=== PATIENT | male | born 1955 | race Caucasian/White ===

== ENCOUNTER 2021-11-24 11:41 | Outpatient (CLI) | payer MEDICARE, SELFPAY ==
[2021-11-24 14:57] LABS: Sodium* 141 mmol/L (135-149)
[2021-11-24 14:58] LABS: Albumin* 4.6 g/dL (3.3-5.0); Potassium* 4.8 mmol/L (3.6-5.1)
[2021-11-24 15:00] LABS: Cholesterol* 245 mg/dL (90-199)
[2021-11-24 15:01] LABS: Alanine Aminotransferase* 31 U/L (4-50); Alkaline Phosphatase* 51 U/L (40-150); Aspartate Amino Transferase* 33 U/L (12-35); Bilirubin Total* 0.4 mg/dL (0.1-1.5); Blood Urea Nitrogen* 17 mg/dL (7-30); Calcium* 9.3 mg/dL (8.4-10.6); Carbon Dioxide* 27 mmol/L (20-32); Creatinine* 1.1 mg/dL (0.5-1.5); Estimated Glomerular Filt Rate 75 ml/min; Glucose* 98 mg/dL (60-115); Total Protein* 7.4 g/dL (6.0-8.3); Triglycerides* 179 mg/dL (40-149)
[2021-11-24 15:02] LABS: HDL Cholesterol* 46 mg/dL (>=40); LDL Cholesterol Calculated 163 mg/dL (<100)
[2021-11-24 15:43] LABS: Chloride* 105 mmol/L (96-114)
== END 2021-11-24 11:42 | disposition home or self-care (01) ==
LOC: NFLDREF 11:41
PROVIDERS: PCP Family Medicine; Visit Provider Family Medicine
DX: R42 Dizziness and giddiness (principal); E78.5 Hyperlipidemia, unspecified; R80.9 Proteinuria, unspecified; D72.829 Elevated white blood cell count, unspecified
CPT/HCPCS: 80053; 80061

== ENCOUNTER 2023-07-15 07:40 | Outpatient (CLI) | payer MEDICARE, SELFPAY ==
--- OUTSIDE RECORDS SUMMARY | 2023-07-16 06:00 | XMS_ITS | Continuity of Care Document ---
Author Name Unknown Organization [facility] Address [address] [place] [address] Phone Care Team Providers Care Skating Carhop Name Role Phone Jus Ross MD Unavailable Unavailable Procedures Procedure Date Office/Outpatient Visit,[facility] [place] 2013 X-Ray Exam Lwr Spine, Min 4 Views Advance Directives Directive Yes / No Effective Date File Name No Information Encounters Encounter Description Practice Location Reason(s) For Visit Diagnoses Date Provider Providers Copied on Encounter [facility], [address], [place], [place], [id number], [place] tel:[phone] [facility] No Information 5 Cody Luu. [facility], [address] [place] [address], [address], [place], [id number] , [place]. tel:[phone] Office/Outpat ient Visit,[facility], [address] [place], [place] [address], [place], [address], [place] tel:[phone] [facility] 4 Cody Luu. [facility], [address] [place] [address], [address], [place], [place], [id number] , [place]. tel:[phone] Referring Provider: Blaise Shepard, [facility] And [address], [address]. tel:[phone] Family History Family Member Type Diagnosis Age At Onset No Information Payers Payer name Insurance type Covered democrat ID Authoriza tion(s) No Information Social History Type Description Quantity Date Captured Comments Sex Male Smoking Status No Information Chief Complaint And Reason For Visit No Information Reason For Referral Reason For Referral No Information History Of Present Illness Encounter Date Complaint History Of Prese nt Illness No Information Functional Status Date Functional Assessmen t No Information Instructions Date Instruction Additional Infor mation No Information Assessments Type Assessment Date No Information Patient Care Teams Name Effective Dates (start - stop) Status Members No Information
--- OUTSIDE RECORDS SUMMARY | 2023-07-16 06:01 | XMS_ITS | Clinical Summary ---
Author Name Unknown Organization [facility] Address [address] [place] [address] Care Team Providers Care Site Leasing Agent Name Role Phone No Ref-Primary, Physician Primary Care Provider Dave Douglas OD Unavailable Marino Anthony MD Unavailable [phone] Allergies Active Allergy Reactions Criticality Noted Date Comments Hydrocodone 03/23/2018 Other reaction(s): Constipation Medications Medication Sig Dispensed Refills Start Date End Date Status simvastatin (ZOCOR) 20 MG tablet Take 20 mg by mouth 01/31/2018 Active meclizine (ANTIVERT) 25 MG tabletIndications:Di zziness of unknown cause Take 1 tablet (25 mg) by mouth 3 times daily as needed for dizziness 12 tablet 10/04/2021 Active Active Problems Problem Noted Date Diagnosed Date Dizziness 10/04/2021 Nausea and vomiting 10/04/2021 Ringing in the ear, bilateral 10/04/2021 Dizziness of unknown cause 10/04/2021 Social History Tobacco Use Types Packs/Day Years Used Date Smoking Tobacco: Former Cigarettes Smokeless Tobacco: Never Alcohol Use Standard Drinks/Week Comments Yes 0 (1 standard drink = 0.6 oz pur e alcohol) Adolescent Education Answer Date Record ed Getting School Help Needed Not on file 01/10 Sex and Gender Information Value Date Recorded Sex Assigned at Male 07/09/2018 8:45 AM CDT Gender Identity Not on file Sexual Orientation Choose not to disclose 2018 8:45 AM CDT Last Filed Vital Signs Vital Sign Reading Time Taken Comments Blood Pressure 144/77 10/04/2021 1:38 PM CDT Pulse 71 10/04/2021 9:13 AM CDT Temperature 36.8 ??C (98.3 ??F) 10/04/2021 1:38 PM CD T Respiratory Rate 18 10/04/2021 1:38 PM CDT Oxygen Saturation 93% 10/04/2021 1:38 PM CDT Inhaled Oxygen Concentration - - Weight 110.5 kg (243 lb 9.7 oz) 10/04/2021 2:40 AM CDT Height 172.7 cm (5' 8) 10/04/2021 2:36 AM CDT Body Mass Index 37.04 10/04/2021 2:36 AM CDT Plan of Treatment Health Maintenance Due Date Last Done Comments ADVANCE CARE PLANNING 1955 ANNUAL REVIEW OF HM ORDERS 1955 CT COLONOGRAPHY 1955 FIT 1955 FLEX SIG 1955 LIPID 1955 sDNA (Cologuard) 1955 COLONOSCOPY 02/12/1966 COLORECTAL CANCER SCREENING 02/12/1966 HEPATITIS C SCREENING 02/12/1974 LUNG CANCER SCREENING 02/12/2006 RSV VACCINE ( & 60+) (1 - 1-dose 60+ series) 2016 FALL RISK ASSESSMENT 02/12/2021 MEDICARE ANNUAL WELLNESS VISIT 02/12/2021 Pneumococcal Vaccine: 65+ Years (1 of 1 - PCV) 02/12/2021 COVID-19 Vaccine (4 - 2022- season) 2022 03/26/2021, 09/24/2020, 09/03/2020 INFLUENZA VACCINE (#1) 2022 , 02/01/2020, 01/30/2019, Additional history exists PHQ-2 (once per calendar year) 2023 GLUCOSE 10/03/2024 10/03/2021 DTAP/TDAP/TD IMMUNIZATION (3 - Td or Tdap) 03/23/2026 03/23/2016, 09/17/2006 ZOSTER IMMUNIZATION Completed 02/25/2019, 12/10/2018, 03/21/2015 HPV IMMUNIZATION Aged Out No longer e ligible based on patient's age to complete this topic IPV IMMUNIZATION Aged Out No longer e ligible based on patient's age to complete this topic MENINGITIS IMMUNIZATION Aged Out No l onger eligible based on patient's age to complete this topic RSV MONOCLONAL ANTIBODY Aged Out No l onger eligible based on patient's age to complete this topic Procedures Procedure Name Priority Date/Time Associated Diagnosis Comments COMPREHENSIVE METABOLIC PANEL STAT 10/03/2021 8:55 PM CDT from Last 3 Months or Most Recently Relevant to Health Maintenance Results * (ABNORMAL) Comprehensive metabolic panel (10/03/2021 8:55 PM CDT) Sodium 138 133 - 144 mmol/L 10/03/2021 9:20 PM CDT [facility] Potassium 3.7 3.4 - 5.3 mmol/L 10/03/2021 9:20 PM CDT [facility] Chloride 106 94 - 109 mmol/L 10/03/2021 9:20 PM CDT [facility] Carbon Dioxide (CO2) 26 20 - 32 mmol/L 10/03/2021 9:20 PM CDT [facility] Anion Gap 6 3 - 14 mmol/L 10/03/2021 9:20 PM CDT [facility] Urea Nitrogen 27 7 - 30 mg/dL 10/03/2021 9:20 PM CDT [facility] Creatinine 1.31(H) 0.66 - 1.25 mg/dL 10/03/2021 9:20 PM CDT [facility] Calcium 9.0 8.5 - 10.1 mg/dL 10/03/2021 9:20 PM CDT [facility] Glucose 150(H) 70 - 99 mg/dL 10/03/2021 9:20 PM CDT [facility] Alkaline Phosphatase 43 40 - 150 U/L 10/03/2021 9:20 PM CDT [facility] AST 26 0 - 45 U/L 10/03/2021 9:20 PM CDT [facility] ALT 44 0 - 70 U/L 10/03/2021 9:20 PM CDT [facility] Protein Total 8.3 6.8 - 8.8 g/dL 10/03/2021 9:20 PM CDT [facility] Albumin 4.4 3.4 - 5.0 g/dL 10/03/2021 9:20 PM CDT [facility] Bilirubin Total 0.4 0.2 - 1.3 mg/dL 10/03/2021 9:20 PM CDT [facility] GFR Estimate 60(L) >60 mL/min/1.7 3m2 10/03/2021 9:20 PM CDT [facility] Comment:Effective March 062020 eGFRcr in adults is calculated using the 2020 CKD-EPI creatinine equation which includes age and gender (Millie et al., NEJM, DOI: 10.1056/MBBMak1578052) Blood STRUCTURE OF LEFT UPPER LIMB / Unknown Venipuncture / Unknown 10/03/2021 8:55 PM CDT 10/03/2021 8:58 PM CDT Hossein Richards MD LAB - BLOOD ORDERABL ES [facility] [address] [place] [address], [facility] [phone] from Last 3 Months or Most Recently Relevant to Health Maintenance Advance Directives For more information, please contact: [phone] * Full Code (Latest Code Status on File) Date Activated Date Inactivated Comments 10/04/2021 2:35 AM 10/04/2021 6:21 PM All basic and advanced life-sustaining interventions are performed as appropriate Question Answer Comments Code status determined by: Discussion with jaycob nt/ legal decision maker Care Teams Site Leasing Agent Relationship Specialty Start Date End Date No Ref-Primary, Physician PCP - General 06/15/18 Dave Douglas OD [facility] [place] [address] Referring Physician 06/15/18 Marino Anthony MD [facility] [address] [place] [address] Ophthalmology 06/15/18
--- OUTSIDE RECORDS SUMMARY | 2023-07-16 06:01 | XMS_ITS | Referral Summary ---
Author Name Unknown Organization [facility] Address [address] [place] [address] Care Team Providers Care Surface Room Shop Optician Name Role Phone No Ref-Primary, Physician Primary Care Provider Dave Douglas OD Unavailable Marino Anthony MD Unavailable [phone] Allergies Active Allergy Reactions Criticality Noted [...] 10/04/2021 2:36 AM CDT Plan of Treatment Not on file Procedures Procedure Name Priority Date/Time Associated Diagnosis Comments COMPREHENSIVE METABOLIC PANEL STAT 10/03/2021 8:55 PM CDT from Last 3 Months or Most Recently Relevant to Health Maintenance Results * (ABNORMAL) Comprehensive metabolic panel (10/03/2021 8:55 PM CDT) Sodium 138 133 - 144 mmol/L 10/03/2021 9:20 PM CDT [facility] Potassium 3.7 3.4 - 5.3 mmol/L 10/03/2021 9:20 PM CDT [facility] Chloride 106 94 - 109 mmol/L 10/03/2021 9:20 PM CDT [facility] Carbon Dioxide (CO2) 26 20 - 32 mmol/L 10/03/2021 9:20 PM CDT [facility] Anion Gap 6 3 - 14 mmol/L 10/03/2021 9:20 PM CDT [facility] Urea Nitrogen 27 7 - 30 mg/dL 10/03/2021 9:20 PM CDT [facility] Creatinine 1.31(H) 0.66 - 1.25 mg/dL 10/03/2021 9:20 PM CDT [facility] Calcium 9.0 8.5 - 10.1 mg/dL 10/03/2021 9:20 PM CDT [facility] Glucose 150(H) 70 - 99 mg/dL 10/03/2021 9:20 PM CDT [facility] Alkaline Phosphatase 43 40 - 150 U/L 10/03/2021 9:20 PM CDT [facility] AST 26 0 - 45 U/L 10/03/2021 9:20 PM CDT [facility] ALT 44 0 - 70 U/L 10/03/2021 9:20 PM CDT [facility] Protein Total 8.3 6.8 - 8.8 g/dL 10/03/2021 9:20 PM CDT [facility] Albumin 4.4 3.4 - 5.0 g/dL 10/03/2021 9:20 PM CDT [facility] Bilirubin Total 0.4 0.2 - 1.3 mg/dL 10/03/2021 9:20 PM CDT [facility] GFR Estimate 60(L) >60 mL/min/1.7 3m2 10/03/2021 9:20 PM CDT [facility] Comment:Effective March 062020 eGFRcr in adults is calculated using the 2020 CKD-EPI creatinine equation which includes age and gender (Results Technician et al., NEJM, DOI: 10.1056/ZRWVgd8788886) Blood STRUCTURE OF LEFT UPPER LIMB / Unknown Venipuncture / Unknown 10/03/2021 8:55 PM CDT 10/03/2021 8:58 PM CDT Hossein Richards MD LAB - BLOOD ORDERABL ES [facility] [address] [place] [address], [facility] [phone] from Last 3 Months or Most Recently Relevant to Health Maintenance Advance Directives For more information, please contact: [phone] * Full Code (Latest Code Status on File) Date Activated Date Inactivated Comments 10/04/2021 2:35 AM 10/04/2021 6:21 PM All basic and advanced life-sustaining interventions are performed as appropriate Question Answer Comments Code status determined by: Discussion with patie nt/ legal decision maker Care Teams Surface Room Shop Optician Relationship Specialty Start Date End Date No Ref-Primary, Physician PCP - General 06/15/18 Dave Douglas OD [facility] [address] [place] [address] Referring Physician 06/15/18 Marino Anthony MD [facility] [address] [place] [address] Ophthalmology 06/15/18
--- OUTSIDE RECORDS SUMMARY | 2023-07-16 06:01 | XMS_ITS | Clinical Summary ---
Author Name Unknown Organization [facility] Address [place], [place] [address] Care Team Providers Care Dispute Resolution Analyst Name Role Phone Blaise Cohen MD Primary Care Provider [phone] Allergies Active Allergy Reactions Criticality Noted Date Comments Hydrocodone Constipation 03/23/2018 Medications Medication Sig Dispensed Refills Start Date End Date Status simvastatin (ZOCOR) 20 mg tablet Take 20 mg by mouth at bedtime. 02/08/18: Patient plans to resume his statin about 1 week after surgery per his provider 0 01/31/2018 Active Active Problems Problem Noted Date Diagnosed Date Lumbar stenosis with neurogenic claudication 09/2017 Degenerative lumbar spinal stenosis 08/12/2017 Impaired fasting glucose 07/19/2008 Hyperlipidemia 07/19/2008 Colon polyps 07/19/2008 Overview: Due for colonoscopy in 2011 Obesity, Unspecified 07/19/2008 S/P lumbar laminectomy Immunizations Name Administration Dates Next Due Influenza, IIV3 (Age 6-35 mos) 01/08/2014,2012 Influenza, IIV3 (Age >=3 years) 03/25/2006 Influenza, IIV4 02/08/2018, 7,03/23/2016,2014 Td, Preservative Free (age > = 7 Years) 03/23/2016 Tdap 09/17/2006 Zoster (Zostavax-ZVL, live) 03/21/2015 Social History Tobacco Use Types Packs/Day Years Used Date Smoking Tobacco: Former Cigarettes 0.5 15 0 04/05/1980 - 04/05/1995 Smokeless Tobacco: Never Tobacco Cessation:Counseling Given: Yes Alcohol Use Standard Drinks/Week Comments Yes 2.5 (1 standard drink = 0.6 oz p ure alcohol) 1 drink 5 times per week Social Connections Answer Date Recorded Frequency of Communication with Friends and Fami ly Not on file 08/18/2021 Sex and Gender Information Value Date Recorded Sex Assigned at Not on file Gender Identity Not on file Sexual Orientation Not on file Obstetrics History Last Filed Vital Signs Vital Sign Reading Time Taken Comments Blood Pressure 131/77 08/18/2021 7:32 AM CDT Pulse 71 08/18/2021 7:32 AM CDT Temperature 36.7 ??C (98.1 ??F) 08/18/2021 7:32 AM CD T Respiratory Rate 16 02/10/2018 8:37 AM CUPOLA MELTER HELPER Oxygen Saturation 97% 08/18/2021 7:32 AM CDT Inhaled Oxygen Concentration - - Weight 110.5 kg (243 lb 9.6 oz) 08/18/2021 7:32 AM CDT Height 170.2 cm (5' 7) 09/12/2018 2:26 PM CDT Body Mass Index 38.15 09/12/2018 2:26 PM CDT Plan of Treatment Health Maintenance Due Date Last Done Comments Depression screening for age 12+ 1968 Hepatitis C screening for ag e 18-79 02/12/1974 Lipids for age 45-75 07/20/2013 07/20/2008, 09/18/19 07 Zoster (shingles) series for age 50+ (2 of 3) 05/16/2015 03/21/2015 BMI (ht and wt on same day) for age 18+ 09/13/2019 09/12/2018, 03/23/2018, 01/31/2018 Medicare Wellness for age 65+ 02/12/2021 Pneumococcal series for age 65+ (1 of 1 - PCV) 02/12/2021 COVID-19 vaccine series (3 - 2022- season) 2022 09/24/2020, 09/03/2020 Colonoscopy through age 75 07/28/2023 07/27/2013, Influenza for age 65+ 12/05/2023 02/08/2018 , 03/09/2017, 03/23/2016, Additional history exists Tetanus booster 03/23/2026 03/23/2016, 09/17/2006 Tdap Completed 09/17/2006 Procedures Procedure Name Priority Date/Time Associated Diagnosis Comments SCAN-COLONOSCOPY 07/27/2013 12:0 0 AM CDT LIPID PANEL Routine 07/20/2008 9:31 AM CDT Pure Hypercholesterolemia from Last 3 Months or Most Recently Relevant to Health Maintenance Results * SCAN-COLONOSCOPY (07/27/2013 12:00 AM CDT) Narrative 07/27/2013 12:00 AM CDT Procedure Note Scanner - 07/27/2013 12:00 AM CDT Scanner OTHER * (ABNORMAL) LIPID PANEL (07/20/2008 9:31 AM CDT) CHOLESTEROL,TOTAL 225(H) 110 - 199 mg/dL [facility] TRIGLYCERIDES 153(H) <150 mg/dL [facility] HDL CHOLESTEROL 44 >40 mg/dL [facility] CHOL/HDL RATIO 5.11(H) <4.51 [facility] LDL CHOLESTEROL 150(H) <131 mg/dL [facility] PATIENT STATUS Fasting [facility] Blood specimen (specimen) BLOOD SPECIMEN / Unknown 07/20/2008 9:31 AM CDT 07/20/2008 9:27 AM CDT Willam Henao MD CHEMISTRY [facility] [address] [place] [address] from Last 3 Months or Most Recently Relevant to Health Maintenance Advance Directives * Full Code (Latest Code Status on File) Date Activated Date Inactivated Comments 02/08/2018 6:01 AM 02/10/2018 3:01 PM Question Answer Comments Code Status Discussion: Not DiscussedPer Advance Care Plan Care Teams Dispute Resolution Analyst Relationship Specialty Start Date End Date Blaise Cohen MD [address] [place] [address] PCP - General Family Practice 08/12/17
== END 2023-07-15 07:41 | disposition home or self-care (01) ==
LOC: NFLDREF 07-16 05:59
PROVIDERS: PCP Family Medicine; Referring Provider Family Medicine; Visit Provider Family Medicine
DX: E78.5 Hyperlipidemia, unspecified (principal); Z12.5 Encounter for screening for malignant neoplasm of prostate
CPT/HCPCS: 80053; 80061; G0103

== ENCOUNTER 2023-07-27 07:01 | Outpatient (CLI) | payer MEDICARE, SELFPAY ==
--- OUTSIDE RECORDS SUMMARY | 2023-07-27 07:04 | XMS_ITS | Clinical Summary ---
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 Oxygen Saturation 97% 08/18/2021 7:32 AM CDT [...] CDT) CHOLESTEROL,TOTAL 225(H) 110 - 199 mg/dL [facility] TRIGLYCERIDES 153(H) <150 mg/dL [facility] HDL CHOLESTEROL 44 >40 mg/dL [facility] CHOL/HDL RATIO 5.11(H) <4.51 [facility] LDL CHOLESTEROL 150(H) <131 mg/dL [facility] PATIENT STATUS Fasting [facility] Blood specimen (specimen) BLOOD SPECIMEN / Unknown 07/20/2008 9:31 AM CDT 07/20/2008 9:27 AM CDT Willam Henao MD CHEMISTRY [facility] [address] [place] [address] from Last 3 Months or Most Recently Relevant to Health Maintenance Advance Directives * Full Code (Latest Code Status on File) Date Activated Date Inactivated Comments 02/08/2018 6:01 AM 02/10/2018 3:01 PM Question Answer Comments Code Status Discussion: Not DiscussedPer Advance Care Plan Care Teams Education Officer Relationship Specialty Start Date End Date Blaise Cohen MD [address] [place] [address] PCP - General Family Practice 08/12/17
--- OUTSIDE RECORDS SUMMARY | 2023-07-27 07:04 | XMS_ITS | Continuity of Care Document ---
Author Name Unknown Organization [facility] Address [address] [place] [address] Phone Care Team Providers Care Supervisor Microfilm Duplicating Unit Name Role Phone Jus Ross MD Unavailable Unavailable Procedures Procedure Date Office/Outpatient Visit,[facility] X-Ray Exam Lwr Spine, Min 4 Views Advance Directives Directive Yes / No Effective Date File Name No Information Encounters Encounter Description Practice Location Reason(s) For Visit Diagnoses Date Provider Providers Copied on Encounter [facility], [address], [place], [place], [id number], [place] tel:[phone] [facility] No Information 5 Cody Luu. [facility], [address] [place] [address], [address], [place], [id number] , [place]. tel:[phone] Office/Outpat ient Visit,[facility], [address] [place], [place] [address] [address], [place], [address], [place] tel:[phone] [facility] 4 Cody Luu. [facility], [address] [place] [address], [address], [place], [place], [id number] , [place]. tel:[phone] Referring Provider: Blaise Shepard, [facility] And [address], [address]. tel:[phone] Family History Family Member Type Diagnosis Age At Onset No Information Payers Payer name Insurance type Covered libertarian ID Authoriza tion(s) No Information Social History [...]
--- OUTSIDE RECORDS SUMMARY | 2023-07-27 07:04 | XMS_ITS | Clinical Summary ---
Author Name Unknown Organization [facility] Address [address] [place] [address] Care Team Providers Care Composition Board Press Operator Name Role Phone No Ref-Primary, Physician Primary Care Provider Dave Douglas OD Unavailable Marino Anthony MD Unavailable [phone] Allergies Active Allergy Reactions Criticality Noted [...] >60 mL/min/1.7 3m2 10/03/2021 9:20 PM CDT [facility] Comment:Effective March 062020 eGFRcr in adults is calculated using the 2020 CKD-EPI creatinine equation which includes age and gender (Millie et al., NEJM, DOI: 10.1056/FNQMiz5521719) Blood STRUCTURE OF LEFT UPPER LIMB / Unknown Venipuncture / Unknown 10/03/2021 8:55 PM CDT 10/03/2021 8:58 PM CDT Hossein Richards MD LAB - BLOOD ORDERABL ES [facility] [address] [place] [address], [facility] [phone] from Last 3 Months or Most Recently Relevant to Health Maintenance Advance Directives For more information, please contact: [phone] * Full Code (Latest Code Status on File) Date Activated Date Inactivated Comments 10/04/2021 2:35 AM 10/04/2021 6:21 PM All basic and advanced life-sustaining interventions are performed as appropriate Question Answer Comments Code status determined by: Discussion with jaycob nt/ legal decision maker Care Teams Composition Board Press Operator Relationship Specialty Start Date End Date No Ref-Primary, Physician PCP - General 06/15/18 Dave Douglas OD [facility] [place] [address] Referring Physician 06/15/18 Marino Anthony MD [facility] [address] [place] [address] Ophthalmology 06/15/18
--- OUTSIDE RECORDS SUMMARY | 2023-07-27 07:04 | XMS_ITS | Referral Summary ---
Author Name Unknown Organization [facility] Address [address] [place] [address] Care Team Providers Care Investigations Chief Name Role Phone No Ref-Primary, Physician Primary Care Provider Dave Douglas OD Unavailable Marino Anthony MD Unavailable [phone] Allergies Active Allergy Reactions Criticality Noted [...] - 144 mmol/L 10/03/2021 9:20 PM CDT [facility] Potassium 3.7 3.4 - 5.3 mmol/L 10/03/2021 9:20 PM CDT [facility] Chloride 106 94 - 109 mmol/L 10/03/2021 9:20 PM CDT [facility] Carbon Dioxide (CO2) 26 20 - 32 mmol/L 10/03/2021 9:20 PM CDT [facility] Anion Gap 6 3 - 14 mmol/L 10/03/2021 9:20 PM CDT [facility] Urea Nitrogen 27 7 - 30 mg/dL 10/03/2021 9:20 PM CDT [facility] Creatinine 1.31(H) 0.66 - 1.25 mg/dL 10/03/2021 9:20 PM CDT [facility] Calcium 9.0 8.5 - 10.1 mg/dL 10/03/2021 9:20 PM CDT [facility] Glucose 150(H) 70 - 99 mg/dL 10/03/2021 9:20 PM CDT [facility] Alkaline Phosphatase 43 40 - 150 U/L 10/03/2021 9:20 PM CDT [facility] AST 26 0 - 45 U/L 10/03/2021 9:20 PM CDT [facility] ALT 44 0 - 70 U/L 10/03/2021 9:20 PM CDT [facility] Protein Total 8.3 6.8 - 8.8 g/dL 10/03/2021 9:20 PM CDT [facility] Albumin 4.4 3.4 - 5.0 g/dL 10/03/2021 9:20 PM CDT [facility] Bilirubin Total 0.4 0.2 - 1.3 mg/dL 10/03/2021 9:20 PM CDT [facility] GFR Estimate 60(L) >60 mL/min/1.7 3m2 10/03/2021 9:20 PM CDT [facility] Comment:Effective March 062020 eGFRcr in adults is calculated using the 2020 CKD-EPI creatinine equation which includes age and gender (Hair Baler et al., NEJM, DOI: 10.1056/FJHMmq4607898) Blood STRUCTURE OF LEFT UPPER LIMB / Unknown Venipuncture / Unknown 10/03/2021 8:55 PM CDT 10/03/2021 8:58 PM CDT Hossein Richards MD LAB - BLOOD ORDERABL ES [facility] [address] Room [address] [place] [address], [facility] [phone] from Last 3 Months or Most Recently Relevant to Health Maintenance Advance Directives For more information, please contact: [phone] * Full Code (Latest Code Status on File) Date Activated Date Inactivated Comments 10/04/2021 2:35 AM 10/04/2021 6:21 PM All basic and advanced life-sustaining interventions are performed as appropriate Question Answer Comments Code status determined by: Discussion with patie nt/ legal decision maker Care Teams Investigations Chief Relationship Specialty Start Date End Date No Ref-Primary, Physician PCP - General 06/15/18 Dave Douglas OD [facility] [address] [place] [address] Referring Physician 06/15/18 Marino Anthony MD [facility] [address] [place] [address] Ophthalmology 06/15/18
--- NOTE | 2023-07-27 07:15 | US_ITS ---
Patient: SARA DOCKERY Facility:?[facility] Patient ID:?[id number] Site Patient ID:?[id number]. Site :?[id number] Study:?US-Abdomen Aorta-07/27/2023 7:42:47 AM Ordering Physician:RAMON MELTON Final Report: TECHNIQUE: Ultrasound of the abdominal aorta. INDICATION: Screening for AAA. FINDINGS: Proximal abdominal aorta: 1.9 cm. Middle aorta: 1.8 cm. Distal aorta: 1.8 cm. Right iliac artery: 1.1 cm. Left iliac artery: 1.1 cm. IMPRESSION: No evidence for abdominal aortic aneurysm. Dictated by Otilio Garrido MD @ 07/27/2023 2:44:04 PM Signed by:?Otilio Garrido MD @07/27/2023 2:44:04 PM (Electronic Signature)
== END 2023-07-27 07:02 | disposition home or self-care (01) ==
LOC: US 07:02
PROVIDERS: PCP Family Medicine; Visit Provider Family Medicine
DX: Z13.6 Encounter for screening for cardiovascular disorders (principal); Z87.891 Personal history of nicotine dependence
CPT/HCPCS: 76706

== ENCOUNTER 2023-07-29 07:01 | Outpatient (CLI) | payer MEDICARE, SELFPAY ==
--- OUTSIDE RECORDS SUMMARY | 2023-07-29 07:03 | XMS_ITS | Continuity of Care Document ---
Author Name Unknown Organization [facility] Address [address] [place] [address] Phone Care Team Providers Care Coal Equipment Operator Name Role Phone Jus Ross MD Unavailable Unavailable Procedures Procedure Date Office/Outpatient Visit,[facility] [place] X-Ray Exam Lwr Spine, Min 4 Views Advance Directives Directive Yes / No Effective Date File Name No Information Encounters Encounter Description Practice Location Reason(s) For Visit Diagnoses Date Provider Providers Copied on Encounter [facility], [address], [place], [place], [id number], [place] tel:[phone] [facility] No Information 5 Cody Luu. [facility], [address] [place] [address], [address], [place], [id number] , [place]. tel:[phone] Office/Outpat ient Visit,[facility], [address] [place], [place] [address], [place], [address], [place] tel:[phone] [facility] 4 Cody Luu. [facility], [address] [place] [address], [address], [place], [place], [id number] , [place]. tel:[phone] Referring Provider: Blaise Shepard, [facility] And [address], [address]. tel:[phone] Family History Family Member Type Diagnosis Age At Onset No Information Payers Payer name Insurance type Covered green party ID Authoriza tion(s) No Information Social History [...]
--- OUTSIDE RECORDS SUMMARY | 2023-07-29 07:03 | XMS_ITS | Clinical Summary ---
Author Name Unknown Organization [facility] Address [address] [place] [address] Care Team Providers Care Smoking Pipe Mounter Name Role Phone No Ref-Primary, Physician Primary Care Provider Dave Douglas OD Unavailable Marino Anthony MD Unavailable [phone] Allergies Active Allergy Reactions Criticality Noted [...] >60 mL/min/1.7 3m2 10/03/2021 9:20 PM CDT [facility] Comment:Effective March 062020 eGFRcr in adults is calculated using the 2020 CKD-EPI creatinine equation which includes age and gender (Millie et al., NEJM, DOI: 10.1056/AEOWxh1342678) Blood STRUCTURE OF LEFT UPPER LIMB / Unknown Venipuncture / Unknown 10/03/2021 8:55 PM CDT 10/03/2021 8:58 PM CDT Hossein Richards MD LAB - BLOOD ORDERABL ES [facility] [address] [place] [id number], [facility] [phone] from Last 3 Months or Most Recently Relevant to Health Maintenance Advance Directives For more information, please contact: [phone] * Full Code (Latest Code Status on File) Date Activated Date Inactivated Comments 10/04/2021 2:35 AM 10/04/2021 6:21 PM All basic and advanced life-sustaining interventions are performed as appropriate Question Answer Comments Code status determined by: Discussion with jaycob nt/ legal decision maker Care Teams Smoking Pipe Mounter Relationship Specialty Start Date End Date No Ref-Primary, Physician PCP - General 06/15/18 Dave Douglas OD [facility] [place] [address] Referring Physician 06/15/18 Marino Anthony MD [facility] [address] [place] [address] Ophthalmology 06/15/18
--- OUTSIDE RECORDS SUMMARY | 2023-07-29 07:03 | XMS_ITS | Clinical Summary ---
Author Name Unknown Organization [facility] Address [place], [place] [address] Care Team Providers Care Configuration Developer Name Role Phone Blaise Cohen MD Primary Care Provider [phone] Allergies Active Allergy Reactions Criticality Noted Date [...] T Respiratory Rate 16 02/10/2018 8:37 AM HEDDLER TIER Oxygen Saturation 97% 08/18/2021 7:32 AM CDT [...] CDT) CHOLESTEROL,TOTAL 225(H) 110 - 199 mg/dL [facility] TRIGLYCERIDES 153(H) <150 mg/dL [facility] HDL CHOLESTEROL 44 >40 mg/dL [facility] CHOL/HDL RATIO 5.11(H) <4.51 [facility] LDL CHOLESTEROL 150(H) <131 mg/dL [facility] PATIENT STATUS Fasting [facility] Blood specimen (specimen) BLOOD SPECIMEN / Unknown 07/20/2008 9:31 AM CDT 07/20/2008 9:27 AM CDT Willam Henao MD CHEMISTRY [facility] [address] [place] [address] from Last 3 Months or Most Recently Relevant to Health Maintenance Advance Directives * Full Code (Latest Code Status on File) Date Activated Date Inactivated Comments 02/08/2018 6:01 AM 02/10/2018 3:01 PM Question Answer Comments Code Status Discussion: Not DiscussedPer Advance Care Plan Care Teams Configuration Developer Relationship Specialty Start Date End Date Blaise Cohen MD [address] [place] [address] PCP - General Family Practice 08/12/17
--- OUTSIDE RECORDS SUMMARY | 2023-07-29 07:03 | XMS_ITS | Referral Summary ---
Author Name Unknown Organization [facility] Address [address] [place] [address] Care Team Providers Care Tinning Equipment Tender Name Role Phone No Ref-Primary, Physician Primary Care Provider Dave Douglas OD Unavailable Marino Anthony MD Unavailable [phone] Allergies Active Allergy Reactions Criticality Noted [...] - 144 mmol/L 10/03/2021 9:20 PM CDT [facility] Potassium 3.7 3.4 - 5.3 mmol/L 10/03/2021 9:20 PM CDT [facility] Chloride 106 94 - 109 mmol/L 10/03/2021 9:20 PM CDT [facility] Carbon Dioxide (CO2) 26 20 - 32 mmol/L 10/03/2021 9:20 PM CDT [facility] Anion Gap 6 3 - 14 mmol/L 10/03/2021 9:20 PM CDT [facility] Urea Nitrogen 27 7 - 30 mg/dL 10/03/2021 9:20 PM CDT [facility] Creatinine 1.31(H) 0.66 - 1.25 mg/dL 10/03/2021 9:20 PM CDT [facility] Calcium 9.0 8.5 - 10.1 mg/dL 10/03/2021 9:20 PM CDT [facility] Glucose 150(H) 70 - 99 mg/dL 10/03/2021 9:20 PM CDT [facility] Alkaline Phosphatase 43 40 - 150 U/L 10/03/2021 9:20 PM CDT [facility] AST 26 0 - 45 U/L 10/03/2021 9:20 PM CDT [facility] ALT 44 0 - 70 U/L 10/03/2021 9:20 PM CDT [facility] Protein Total 8.3 6.8 - 8.8 g/dL 10/03/2021 9:20 PM CDT [facility] Albumin 4.4 3.4 - 5.0 g/dL 10/03/2021 9:20 PM CDT [facility] Bilirubin Total 0.4 0.2 - 1.3 mg/dL 10/03/2021 9:20 PM CDT [facility] GFR Estimate 60(L) >60 mL/min/1.7 3m2 10/03/2021 9:20 PM CDT [facility] Comment:Effective March 062020 eGFRcr in adults is calculated using the 2020 CKD-EPI creatinine equation which includes age and gender (Frame Repairer et al., NEJM, DOI: 10.1056/ACZRrv8748871) Blood STRUCTURE OF LEFT UPPER LIMB / Unknown Venipuncture / Unknown 10/03/2021 8:55 PM CDT 10/03/2021 8:58 PM CDT Hossein Richards MD LAB - BLOOD ORDERABL ES [facility] [address] [place] [id number], [facility] [phone] from Last 3 Months or Most Recently Relevant to Health Maintenance Advance Directives For more information, please contact: [phone] * Full Code (Latest Code Status on File) Date Activated Date Inactivated Comments 10/04/2021 2:35 AM 10/04/2021 6:21 PM All basic and advanced life-sustaining interventions are performed as appropriate Question Answer Comments Code status determined by: Discussion with patie nt/ legal decision maker Care Teams Tinning Equipment Tender Relationship Specialty Start Date End Date No Ref-Primary, Physician PCP - General 06/15/18 Dave Douglas OD [facility] [address] [place] [address] Referring Physician 06/15/18 Marino Anthony MD [facility] [address] [place] [address] Ophthalmology 06/15/18
--- NOTE | 2023-07-29 08:49 | W.ANESCHARGE ---
Anesthesia Charges Start Date/Time Anesthesia Start Date: 07/29/23 Anesthesia Start Time: 08:09 Stop Date/Time Anesthesia Stop Date: 07/29/23 Anesthesia Stop Time: 08:46
--- NOTE | 2023-07-29 08:54 | W.ANESCHARGE ---
Anesthesia Charges Start Date/Time Anesthesia Start Date: 07/29/23 Anesthesia Start Time: 08:09 Stop Date/Time Anesthesia Stop Date: 07/29/23 Anesthesia Stop Time: 08:46
== END 2023-07-29 07:02 | disposition home or self-care (01) ==
LOC: OP CLINIC 07:01
PROVIDERS: PCP Family Medicine; Visit Provider Surgery
DX: Z12.11 Encounter for screening for malignant neoplasm of colon (principal); K63.5 Polyp of colon; Z86.010 Personal history of colon polyps
CPT/HCPCS: 00811; 45385; 88305; J2704

== ENCOUNTER 2024-06-01 16:55 | Outpatient (CLI) | payer MEDICARE, SELFPAY | END 2024-06-01 16:56 | disposition home or self-care (01) | PROVIDERS: PCP Family Medicine; Visit Provider Internal Medicine | DX: H53.2 Diplopia (principal) | CPT/HCPCS: 70450; 70480; 84443; 85651; 86140 ==

== ENCOUNTER 2024-07-13 07:30 | Outpatient (CLI) | payer MEDICARE, SELFPAY | END 2024-07-13 07:31 | disposition home or self-care (01) | LOC: NFLDREF 07-17 18:15 | PROVIDERS: PCP Family Medicine; Referring Provider Family Medicine; Visit Provider Family Medicine | DX: E78.5 Hyperlipidemia, unspecified (principal); I10 Essential (primary) hypertension | CPT/HCPCS: 80053; 80061 ==

== ENCOUNTER 2024-08-12 20:51 | Emergency (ER) | payer MEDICARE, SELFPAY ==
--- OUTSIDE RECORDS SUMMARY | 2024-08-12 20:53 | XMS_ITS | Clinical Summary ---
Author Organization [email or web address] Address [address] [place] [address] Care Team Providers Care Culinary Internship Name Role Phone Blaise Cohen MD Primary Care Provider [phone] Allergies Active Allergy Reactions Criticality Noted Date Comments Hydrocodone Constipation 03/23/2018 Medications simvastatin (ZOCOR) 20 mg tablet Take 20 mg by mouth at bedtime. 02/08/18: Patient plans to resume his statin about 1 week after surgery per his provider 0 01/31/2018 Active Active Problems Problem Noted Date Diagnosed Date Lumbar stenosis with neurogenic claudication 09/2017 Degenerative lumbar spinal stenosis 08/12/2017 Impaired fasting glucose 07/19/2008 Hyperlipidemia 07/19/2008 Colon polyps 07/19/2008 Overview (07/19/2008): Due for colonoscopy in 2011 Obesity, Unspecified 07/19/2008 S/P lumbar laminectomy Immunizations Immunization Administration Dates Next Due Influenza, IIV3 (Age [...] Recorded Sex Assigned at Not on file Legal Sex Male 5:24 AM MOTOCROSS RACER Gender Identity Not on file Sexual Orientation Not on file 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 Not on file Not on file Obstetrics History Last Filed Vital Signs Vital Sign Reading Time Taken Comments Blood Pressure 131/77 08/18/2021 7:32 AM CDT Pulse 71 08/18/2021 7:32 AM CDT Temperature 36.7 C (98.1 F) 08/18/2021 7:32 AM CDT Respiratory Rate 16 02/10/2018 8:37 AM MOTOCROSS RACER Oxygen Saturation 97% 08/18/2021 7:32 AM CDT [...] C screening for ag e 18-79 02/12/1974 Pneumococcal series for age 50+ (1 of 1 - PCV) 02/12/2006 Lipids for age 45-75 07/20/2013 07/20/2008, 09/18/19 07 Zoster (shingles) series for age 50+ (2 of 3) 05/16/2015 03/21/2015 BMI (ht and wt on same day) for age 18+ 09/13/2019 09/12/2018, 03/23/2018, 01/31/2018 Medicare Wellness for age 65+ 02/12/2021 Colonoscopy through age 75 07/28/2023 07/27/2013, COVID-19 vaccine series ( season) 2023 09/24/2020, 09/03/2020 Influenza Vaccine (Season Ended) 2024 02/08/2018, 03/09/2017, 03/23/2016, Additional history exists Tetanus booster 03/23/2026 03/23/2016, 09/17/2006 RSV vaccine for adults or (1 - 1-dose 75+ series) 02/12/2031 Tdap Completed 09/17/2006 Procedures Procedure Name Priority Date/Time Associated Diagnosis Comments SCAN-COLONOSCOPY 07/27/2013 12:0 0 AM CDT LIPID PANEL Routine 07/20/2008 9:31 AM CDT Pure Hypercholesterolemia from Last 3 Months or Most Recently Relevant to Health Maintenance Results * SCAN-COLONOSCOPY (07/27/2013 12:00 AM CDT) Narrative 07/27/2013 12:00 AM CDT Procedure Note Scanner - 07/27/2013 12:00 AM CDT us Scanner OTHER Final Result * (ABNORMAL) LIPID PANEL (07/20/2008 9:31 AM CDT) CHOLESTEROL,TOTAL 225(H) 110 - 199 mg/dL [facility] TRIGLYCERIDES 153(H) <150 mg/dL [facility] HDL CHOLESTEROL 44 >40 mg/dL [facility] CHOL/HDL RATIO 5.11(H) <4.51 [facility] LDL CHOLESTEROL 150(H) <131 mg/dL [facility] PATIENT STATUS Fasting [facility] Blood specimen (specimen) BLOOD SPECIMEN / Unknown 07/20/2008 9:31 AM CDT 07/20/2008 9:27 AM CDT us Willam Henao MD CHEMISTRY Final Re sult [facility] [address] [place] [address] from Last 3 Months or Most Recently Relevant to Health Maintenance Insurance [facility] [employer]US [employer] MEDICARE ADVANTAGE MR Advance Directives * Full Code (Latest Code Status on File) Date Activated Date Inactivated Comments 02/08/2018 6:01 AM 02/10/2018 3:01 PM Question Answer Comments Code Status Discussion: Not DiscussedPer Advance Care Plan Care Teams Culinary Internship Relationship Specialty Start Date End Date Blaise Cohen MD [address] [place] [address] PCP - General Family Practice 08/12/17
--- OUTSIDE RECORDS SUMMARY | 2024-08-12 20:53 | XMS_ITS | Clinical Summary ---
Author Organization [facility] Address [address] [place] [address] Care Team Providers Care Golf Ball Molder Name Role Phone No Ref-Primary, Physician Primary Care Provider Dave Douglas OD Unavailable Marino Anthony MD Unavailable [phone] Maria Luz Gomez OD Unavailable Allergies Active Allergy Reactions Criticality Noted Date Comments Hydrocodone 03/23/2018 Other reaction(s): Constipation Medications simvastatin (ZOCOR) 20 MG tablet Take 20 mg by mouth 8 Active meclizine (ANTIVERT) 25 MG tabletIndicatio ns:Dizziness of unknown cause Take 1 tablet (25 mg) by mouth 3 times daily as needed for dizziness 12 tablet 2 Active valsartan-hydro chlorothiazide (DIOVAN HCT) 80-12.5 MG tablet 5 Active Active Problems Problem Noted Date Diagnosed Date Dizziness 10/04/2021 Nausea and vomiting 10/04/2021 Ringing in the ear, bilateral 10/04/2021 Dizziness of unknown cause 10/04/2021 Encounters Date Type Department Care Team Description 06/27/2024 Transcribe Orders GENERIC EXTERNAL DATA DEPARTMENT Kiana Yu OD Third (oculomotor) nerve palsy, right eye (Primary Dx); Diplopia 06/20/2024 Telephone [facility] [address] 9[facility] [address] [place] [address] Maria Luz Gomez OD 06/19/2024 9:00 AM CDT Lab [facility] [address] [place] [phone] Cranial nerve III palsy, left 06/19/2024 Travel 06/18/2024 Patient Self-Triage [facility] [address] [phone] Christel Kruger MD 06/17/2024 7:13 AM CDT - 06/17/2024 11:59 PM CDT Hospital Encounter [facility] [address] [phone] Gomez, Maria Luz, OD Cranial nerve III palsy, left Discharge Disposition: Home or Self Care 06/17/2024 Telephone [facility] [address] [phone] Gomez, Maria Luz, OD 06/17/2024 Travel 06/16/2024 7:30 AM CDT Office Visit [facility] [address] [phone] Gomez, Maria Luz, OD Cranial nerve III palsy, left (Primary Dx); Third (oculomotor) nerve palsy, right eye; Diplopia 06/16/2024 Travel 06/14/2024 Travel 06/12/2024 Telephone [facility] - [address] [phone] Gomez, Maria Luz, OD 06/12/2024 MyC Medical Advice [facility] - [address] [phone] [facility] 06/12/2024 Telephone [facility] [address] [phone] None Eye Problem (Pt called as he is experiencing double vision and eye pain) from Last 3 Months Social History Tobacco Use Types Packs/Day Years Used Date Smoking Tobacco: Former Cigarettes Smokeless Tobacco: Never Tobacco Cessation:Counseling Given: Not Answered Alcohol Use Standard Drinks/Week Comments Yes 0 (1 standard drink = 0.6 oz pur e alcohol) PHQ-2 Answer Date Recorded PHQ-2 Score 0 06/16/2024 Adolescent Education Answer Date Record ed Getting School Help Needed Not on file 01/10 Sex and Gender Information Value Date Recorded Sex Assigned at Male 07/09/2018 8:45 AM CDT 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 Gender Identity Not on file Sexual Orientation Choose not to disclose 2018 8:45 AM CDT Last Filed Vital Signs Vital Sign Reading Time Taken Comments Blood Pressure 144/77 10/04/2021 1:38 PM CDT Pulse 71 10/04/2021 9:13 AM CDT Temperature 36.8 C (98.3 F) 10/04/2021 1:38 PM CDT Respiratory Rate 18 10/04/2021 1:38 PM CDT Oxygen Saturation 93% 10/04/2021 1:38 PM CDT Inhaled Oxygen Concentration - - Weight 110.5 kg (243 lb 9.7 oz) 10/04/2021 2:40 AM CDT Height 172.7 cm (5' 8) 10/04/2021 2:36 AM CDT Body Mass Index 37.04 10/04/2021 2:36 AM CDT Plan of Treatment Upcoming Encounters Date Type Department Care Team (Late st Contact Info) Description 09/04/2024 9:30 AM CDT Office Visit [facility] [place] [address] [place] [address] [address] [place] [phone] Patricia, Maria Luz, OD [address] [place], [place] [phone] Health Maintenance Due Date Last Done Comments ADVANCE CARE PLANNING 1955 ANNUAL REVIEW OF HM ORDERS 1956 CT COLONOGRAPHY 1956 FIT 1956 FLEX SIG 1956 LIPID 1956 sDNA (Cologuard) 1955 HEPATITIS C SCREENING 02/12/1974 LUNG CANCER SCREENING 02/12/2006 AORTIC ANEURYSM SCREENING (SYSTEM ASSIGNED) 02/12/2021 MEDICARE ANNUAL WELLNESS VISIT 02/12/2021 COLONOSCOPY 07/28/2023 07/27/2013 COLORECTAL CANCER SCREENING 07/28/2023 COVID-19 Vaccine ( season) 2023 03/26/2021, 09/24/2020, 09/03/2020 DIABETES SCREENING 10/03/2024 10/03/2021 FALL RISK ASSESSMENT 06/16/2025 06/16/2024 DTAP/TDAP/TD IMMUNIZATION (3 - Td or Tdap) 03/23/2026 03/23/2016, 09/17/2006 RSV VACCINE (1 - 1-dose 75+ series) 02/12/2031 ZOSTER IMMUNIZATION Completed 02/25/2019, 12/10/2018, 03/21/2015 Pneumococcal Vaccine: 50+ Years Completed 07/20/2023 INFLUENZA VACCINE Completed 12/25/2023, , 02/19/2021, Additional history exists PHQ-2 (once per calendar year) Completed 06/16/2024 HPV IMMUNIZATION Aged Out No longer e ligible based on patient's age to complete this topic MENINGITIS IMMUNIZATION Aged Out No l onger eligible based on patient's age to complete this topic Procedures Procedure Name Priority Date/Time Associated Diagnosis Comments CRP INFLAMMATION Routine 06/19/2024 9:00 AM CDT Cranial nerve III palsy, left ERYTHROCYTE SEDIMENTATION RATE AUTO Routine 06/19/2024 9:00 AM CDT Cranial nerve III palsy, left MRA BRAIN ([place]) W/O CONTRAST STAT 06/17/2024 8:07 AM CDT Cranial nerve III palsy, left MR BRAIN W/O & W CONTRAST STAT 06/17/2024 8:07 AM CDT Cranial nerve III palsy, left SENSORIMOTOR Routine 06/16/2024 10:33 AM CDT Cranial nerve III palsy, left EYE EXAM - HIM SCAN 05/31/2024 1 2:00 AM 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 (no room number, 1st floor of clinic) [place] [address], [facility] * CRP inflammation (06/19/2024 9:00 AM CDT) CRP Inflammation <3.00 <5.00 mg/L 06/20/19 9:06 PM CDT [facility] Blood BLOOD SPECIMEN / Unknown Venipuncture / Unknown 06/19/2024 9:00 AM CDT 06/19/2024 9:00 AM CDT Maria Luz Jacksoneres OD LAB - BLOOD ORDERABLES Final Result [facility] [address] [place] [address], [facility] * (ABNORMAL) MR Brain w/o & w Contrast (06/17/2024 8:07 AM CDT) Radiologist flags Findings suggestive of left optic neuritis. Recommend clinical correlation.(U rgent) RADIOLOGY RESULTS Anatomical Region Laterality Modality Head, SUBRAD MR NEURO, UMP MR NEURO, RAD MR Magnetic Resonance 06/17/2024 8:07 AM CDT Impressions 06/17/2024 8:52 AM CDT IMPRESSION: 1. Asymmetric enhancement of the left optic nerve is suggestive of optic neuritis. Recommend clinical correlation. 2. Normal MRI appearance of the left oculomotor nerve. 3. The right posterior communicating artery abuts the cisternal segment of the right oculomotor nerve, of indeterminate clinical significance. 4. No MRI evidence for an acute intracranial process. 5. Mild chronic microangiopathic ischemic changes [Access Center: Findings suggestive of left optic neuritis. Recommend clinical correlation.] This report will be copied to the [facility] to ensure a provider acknowledges the finding. Access Center is available Wednesday through Wednesday 8am- 3:30 pm. Narrative 06/17/2024 8:52 AM CDT EXAM: MR BRAIN W/O and W CONTRAST LOCATION: [facility] DATE: 06/17/2024 INDICATION: left cranial nerve 3 palsy rule out aneurysm COMPARISON: None. CONTRAST: 10 mL Gadavist intravenous TECHNIQUE: Multiplanar multisequence head MRI without and with intravenous contrast including dedicated imaging of the skull base and third through sixth cranial nerves. FINDINGS: CRANIAL NERVES: Dedicated imaging of the cranial nerves was performed. A well-developed right posterior communicating artery abuts the cisternal segment of the right ocular motor nerve. The left oculomotor nerve appears normal. No cerebellopontine angle or prepontine mass. No pathologic contrast enhancement along the course of either oculomotor or trigeminal nerve. INTRACRANIAL CONTENTS: No acute or subacute infarct. No mass, acute hemorrhage, or extra-axial fluid collections. Scattered nonspecific T2/FLAIR hyperintensities within the cerebral white matter most consistent with mild chronic microvascular ischemic change. Mild generalized cerebral atrophy. No hydrocephalus. Normal position of the cerebellar tonsils. No pathologic contrast enhancement. ORBITS: Asymmetric enhancement of the left optic nerve (series 115 image 4 and series 114 image 9). There may be mild inflammatory changes surrounding the left optic nerve. OTHER: Mild mucosal thickening of paranasal sinuses. Trace fluid in the left mastoid air cells. Accounting for technique no additional abnormalities identified. Procedure Note Andrzej Garcia MD - 06/17/2024 EXAM: MR BRAIN W/O and W CONTRAST LOCATION: [facility] DATE: 06/17/2024 INDICATION: left cranial nerve 3 palsy rule out aneurysm COMPARISON: None. CONTRAST: 10 mL Gadavist intravenous TECHNIQUE: Multiplanar multisequence head MRI without and with intravenouscontrast including dedicated imaging of the skull base and third throughsixth cranial nerves. FINDINGS: CRANIAL NERVES: Dedicated imaging of the cranial nerves was performed. Awell-developed right posterior communicating artery abuts the cisternalsegment of the right ocular motor nerve. The left oculomotor nerve appearsnormal. No cerebellopontine angle or prepontine mass. No pathologic contrast enhancement along the course ofeither oculomotor or trigeminal nerve. INTRACRANIAL CONTENTS: No acute or subacute infarct. No mass, acutehemorrhage, or extra-axial fluid collections. Scattered nonspecificT2/FLAIR hyperintensities within the cerebral white matter most consistentwith mild chronic microvascular ischemic change. Mild generalized cerebral atrophy. No hydrocephalus. Normalposition of the cerebellar tonsils. No pathologic contrast enhancement. ORBITS: Asymmetric enhancement of the left optic nerve (series 115 image 4and series 114 image 9). There may be mild inflammatory changessurrounding the left optic nerve. OTHER: Mild mucosal thickening of paranasal sinuses. Trace fluid in theleft mastoid air cells. Accounting for technique no additionalabnormalities identified. IMPRESSION: 1. Asymmetric enhancement of the left optic nerve is suggestive of opticneuritis. Recommend clinical correlation. 2. Normal MRI appearance of the left oculomotor nerve. 3. The right posterior communicating artery abuts the cisternal segmentof the right oculomotor nerve, of indeterminate clinical significance. 4. No MRI evidence for an acute intracranial process. 5. Mild chronic microangiopathic ischemic changes [Access Center: Findings suggestive of left optic neuritis. Recommendclinical correlation.] This report will be copied to the [facility] to ensure aprovider acknowledges the finding. Access Center is available Wednesdaythrough Wednesday 8am- 3:30 pm. us Maria Luz Gomez OD IMG MRI ORDERABLES Final Resu lt * MRA Brain ([place]) wo Contrast (06/17/2024 8:07 AM CDT) Anatomical Region Laterality Modality Head, SUBRAD MR NEURO, UMP MR NEURO, RAD MR Magnetic Resonance 06/17/2024 8:07 AM CDT Impressions 06/17/2024 10:02 AM CDT IMPRESSION: 1. No intracranial aneurysm. Narrative 06/17/2024 10:02 AM CDT EXAM: MRA BRAIN ([place]) W/O CONTRAST LOCATION: [facility] DATE: 06/17/2024 INDICATION: left cranial nerve 3 palsy rule out aneurysm COMPARISON: None. TECHNIQUE: 3D [id number] head MRA without intravenous contrast. FINDINGS: ANTERIOR CIRCULATION: No stenosis/occlusion, aneurysm, or high flow vascular malformation. Standard [place] anatomy. POSTERIOR CIRCULATION: No stenosis/occlusion, aneurysm, or high flow vascular malformation. Dominant right and smaller left vertebral artery contribute to a normal basilar artery. Procedure Note Andrzej Garcia MD - 06/17/2024 EXAM: MRA BRAIN ([place]) W/O CONTRAST LOCATION: [facility] DATE: 06/17/2024 INDICATION: left cranial nerve 3 palsy rule out aneurysm COMPARISON: None. TECHNIQUE: 3D [id number] head MRA without intravenous contrast. FINDINGS: ANTERIOR CIRCULATION: No stenosis/occlusion, aneurysm, or high flowvascular malformation. Standard [place] anatomy. POSTERIOR CIRCULATION: No stenosis/occlusion, aneurysm, or high flowvascular malformation. Dominant right and smaller left vertebral arterycontribute to a normal basilar artery. IMPRESSION: 1. No intracranial aneurysm. Maria Luz Gomez OD IMG MRI ORDERABLES Final Resu lt * Sensorimotor (06/16/2024 10:33 AM CDT) Narrative Maria Luz Gomez, OD - 06/16/2024 10:33 AM CDT Performed by: NENA Plascencia . Patient cooperation: Reliable . Reliability of the test: Good . Test Findings: Strabismus . Interpretation: 3rd nerve palsy . Plan: Will monitor and consider eye muscle surgery . Interval: Initial . 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) 05/31/2024 us Provider Outside OTHER Final Result * (ABNORMAL) Comprehensive metabolic panel (10/03/2021 8:55 PM CDT) Sodium 138 133 - 144 mmol/L 10/03/2021 9:20 PM CDT [facility] Potassium 3.7 3.4 - 5.3 mmol/L 10/03/2021 9:20 PM T [facility] Chloride 106 94 - 109 mmol/L 10/03/2021 9:20 PM [facility] Carbon Dioxide (CO2) 26 20 - 32 mmol/L 10/03/2021 9:20 PM [facility] Anion Gap 6 3 - 14 mmol/L 10/03/2021 9:20 PM [facility] Urea Nitrogen 27 7 - 30 mg/dL 10/03/2021 9:20 PM [facility] Creatinine 1.31(H) 0.66 - 1.25 mg/dL 10/03/2021 9:20 PM [facility] Calcium 9.0 8.5 - 10.1 mg/dL 10/03/2021 9:20 PM [facility] Glucose 150(H) 70 - 99 mg/dL 10/03/2021 9:20 PM [facility] Alkaline Phosphatase 43 40 - 150 U/L 10/03/2021 9:20 PM CDT [facility] AST 26 0 - 45 U/L 10/03/2021 9:20 PM [facility] ALT 44 0 - 70 U/L 10/03/2021 9:20 PM [facility] Protein Total 8.3 6.8 - 8.8 g/dL 10/03/2021 9:20 PM [facility] Albumin 4.4 3.4 - 5.0 g/dL 10/03/2021 9:20 PM [facility] Bilirubin Total 0.4 0.2 - 1.3 mg/dL 10/03/2021 9:20 PM [facility] GFR Estimate 60(L) >60 mL/min/1.7 3m2 10/03/2021 9:20 PM [facility] Comment:Effective March 062020 eGFRcr in adults is calculated using the 2020 CKD-EPI creatinine equation which includes age and gender (Millie carlisle al., NEJM, DOI: 10.1056/OUEFry7210463) Blood STRUCTURE OF LEFT UPPER LIMB / Unknown Venipuncture / Unknown 10/03/2021 8:55 PM CDT 10/03/2021 8:58 PM CDT Hossein Richards MD LAB - BLOOD ORDERABLES Final Res ult [facility] [address] [place] [address], [facility] [phone] from Last 3 Months or Most Recently Relevant to Health Maintenance Insurance [facility] MEDICARE [facility] MEDICARE [employer] MED[employer]ARE Advance Directives For more information, please contact: [phone] * Full Code (Latest Code Status on File) Date Activated Date Inactivated Comments 10/04/2021 2:35 AM 10/04/2021 6:21 PM All basic and advanced life-sustaining interventions are performed as appropriate Question Answer Comments Code status determined by: Discussion with jaycob nt/ legal decision maker Care Teams Golf Ball Molder Relationship Specialty Start Date End Date No Ref-Primary, Physician PCP - General 06/15/18 Dave Douglas OD [facility] [address] [place] [address] Referring Physician 06/15/18 Marino Anthony MD [facility] [address] [place] [address] Ophthalmology 06/15/18 Maria Luz Gomez, OD [address] [place] [address] Assigned Surgical Provider 06/25/24
--- OUTSIDE RECORDS SUMMARY | 2024-08-12 20:53 | XMS_ITS | Encounter Summary ---
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 Gender Identity Not on file Sexual Orientation Choose not to disclose 2018 8:45 AM CDT documented as of this encounter Plan of Treatment Upcoming Encounters Date Type Department Care Team (Late Contact Info) Description 09/04/2024 9:30 AM CDT Office Visit [facility] [address] 9[facility] [address] [place] [phone] Maria Luz Gomez, OD [address] [place], [place] [address] documented as of this encounter Visit Diagnoses Not on filedocumented in this encounter Care Teams Superintendent Police Relationship Specialty Start Date End Date No Ref-Primary, Physician PCP - General 06/15/18 Dave Douglas, OD [facility] [address] [place] [address] Referring Physician 06/15/18 Marino Anthony MD [facility] [address] [place] [address] Ophthalmology 06/15/18 Maria Luz Gomez, OD [address] [place] [address] Assigned Surgical Provider 06/25/24 documented as of this encounter
--- OUTSIDE RECORDS SUMMARY | 2024-08-12 20:53 | XMS_ITS | Encounter Summary ---
Author Organization [facility] Address [address] [place] [address] Care Team Providers Care Credit Card Associate Name Role Phone No Ref-Primary, Physician Primary Care Provider Dave Douglas OD Unavailable Marino Anthony MD Unavailable [phone] Maria Luz Gomez OD Unavailable [phone] Reason for Visit * Reason Onset Date Comments Eye Problem 06/12/2024 Pt called a s he is experiencing double vision and eye pain Encounter Details Date Type Department Care Team (Late st Contact Info) Description 06/12/2024 Telephone [facility] - [address] Clin [address] [place] [phone] None Eye Problem (Pt called as he is experiencing double vision and eye pain) Social History Tobacco Use Types Packs/Day Years [...] AM CDT 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 Gender Identity Not on file Sexual Orientation Choose not to disclose 2018 8:45 AM CDT documented as of this encounter Miscellaneous Notes * Telephone Encounter - Nhi Mcknight - 06/12/2024 9:20 AM CDT Caller reporting the following red-flag symptom(s): Pt called as he is experiencing double vision and eye pain Per the system red-flag symptom policy, patient was instructed to: speak with a Registered Nurse Action: Patient warm transferred to a Registered Nurse Leda documented in this encounter Plan of Treatment Upcoming Encounters Date Type Department Care Team (Late st Contact Info) Description 09/04/2024 9:30 AM CDT Office Visit [facility] [address] [facility] [address] [facility] [address] [place] [phone] Maria Luz Gomez, OD [address] [place], [place] [phone] documented as of this encounter Visit Diagnoses Not on filedocumented in this encounter Care Teams Credit Card Associate Relationship Specialty Start Date End Date No Ref-Primary, Physician PCP - General 06/15/18 Dave Douglas, OD [facility] [address] [place] [address] Referring Physician 06/15/18 Marino Anthony MD [facility] [address] [place] [address] Ophthalmology 06/15/18 Maria Luz Gomez, OD [address] [place], [place] [address] Assigned Surgical Provider 06/25/24 documented as of this encounter
[2024-08-12 20:58] VITALS: BP 143/86; PULSE 84; RESP 16; TEMP 36.6; O2SAT 95; BMI 36.3
--- NOTE | 2024-08-12 21:08 | CRLHL7_ITS ---
For Patients: As a result of the Cures Act, medical imaging exams and procedure reports are released immediately into your electronic medical record. You may view this report before your referring provider. If you have questions, please contact your health care provider. INDICATION: Cough. TECHNIQUE: Chest 2 views. COMPARISON: None. FINDINGS: Cardiovascular and mediastinum: Heart size and vasculature are normal in caliber and appearance. Lungs and pleural spaces: Low lung volumes. No sign of infiltrate or mass. No sign of pleural effusion. No pneumothorax. Bones and soft tissues: No significant findings. IMPRESSION: Low lung volumes. No acute or significant findings. Dictated by Zain Winston MD @ 08/12/2024 9:22:44 PM (Electronically Signed)
--- NOTE | 2024-08-12 21:15 | ED.GENADULT ---
HPI - General Adult General Chief complaint: Cough Stated complaint: Cold 10+ days Time Seen by Provider: 08/12/24 20:53 History of Present Illness HPI narrative: This 69-year-old male states that he has had a cough for the past 10 days and now he is having significant anterior rib pain when coughing. He does not report any fevers. Related Data Home Medications ?Medication ?Instructions ?Recorded ?Confirmed multivitamin 1 tab PO QDAY 07/20/24 08/12/24 Previous Rx's ?Medication ?Instructions ?Recorded simvastatin 20 mg tablet 20 mg PO .Bedtime #90 tabs 07/20/24 valsartan 80 1 tab PO QDAY #90 tabs 07/20/24 mg-hydrochlorothiazide 12.5 mg tablet (Diovan HCT) Allergies Allergy/AdvReac Type Severity Reaction Status Date / Time acetaminophen AdvReac Mild Nausea Verified 07/20/24 08:40 hydrocodone AdvReac Mild Nausea Verified 07/20/24 08:40 Review of Systems Status of ROS: Reports: 10 or more systems reviewed and unremarkable except as noted in History and below Narrative: Constitutional: Well-developed, well-nourished, no acute distress. HEENT: Normocephalic, atraumatic. Neck: Normal range of motion. Nontender. Supple. Heart: Regular. No murmurs. Normal rate. Intact distal pulses. Lungs: Clear to auscultation. No wheezes, rhonchi, or rales. Abdomen: Normal bowel sounds. Nontender. No rebound tenderness. Genitalia: Deferred. Back: No midline tenderness. Normal range of motion. Extremities: Normal range of motion. No injury. Skin: Intact. No rash. Warm. No erythema or pallor. Neurologic: No altered sensation. No weakness. Alert and oriented. Psychiatric: No suicidality. No anxiety or depression. No insomnia. Nursing notes and vitals signs are reviewed. 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 What is your current living situation?: I presently have a place to live Problems where you live: declined to answer In the past 12 months, utilities in danger of being shut off: no In past 12 months, lack of transportation kept you from medical appts, meetings, work, or getting things needed for daily living: no In the past 12 mos, have been you worried that your food would run out before you had money to buy more?: never true In the past 12 mos, the food you bought just didn't last and you didn't have money to buy more?: never true Smoking Status: Never smoker Non-prescribed substance use: denies use How often does anyone, including family, friends and others, physically hurt you: never How often does anyone, including family, friends and others, insult or talk down to you: never How often does anyone, including family, friends and others, threaten you with harm: never How often does anyone, including family, friends and others, scream or curse at you: never Exam Narrative: Exam Narrative: Constitutional: Well-developed, well-nourished, no acute distress. HEENT: Normocephalic, atraumatic. Neck: Normal range of motion. Nontender. Supple. Heart: Regular. No murmurs. Normal rate. Intact distal pulses. Lungs: Clear to auscultation. No wheezes, rhonchi, or rales. Lower anterior rib pain when coughing. Abdomen: Normal bowel sounds. Nontender. No rebound tenderness. Genitalia: Deferred. Back: No midline tenderness. Normal range of motion. Extremities: Normal range of motion. No injury. Skin: Intact. No rash. Warm. No erythema or pallor. Neurologic: No altered sensation. No weakness. Alert and oriented. Psychiatric: No suicidality. No anxiety or depression. No insomnia. Nursing notes and vitals signs are reviewed. Const: Vital Signs, click to edit/add: Vital Signs - 24 hr 08/12/24 20:58 Temperature 97.8 F Pulse Rate [Pulse Oximeter] 84 Respiratory Rate 16 Blood Pressure [Ri ght Upper Arm] 143/86 H Pulse Oximetry 95 Oxygen Delivery Me thod Room Air Course Vital Signs Vital signs: Initial Vital Signs Temperature 97.8 F 08/12/24 20:58 Temperature Source Temporal Artery Scan 08/12/24 20:58 Pulse Rate 84 08/12/24 20:58 Respiratory Rate 16 08/12/24 20:58 Blood Pressure 143/86 H 08/12/24 20:58 Blood Pressure Mean 105 08/12/24 20:58 Blood Pressure Position Sitting 08/12/24 20:58 Pulse Oximetry 95 08/12/24 20:58 Oxygen Delivery Method Room Air 08/12/24 20:58 Vital Signs Temperature 97.8 F 08/12/24 20:58 Pulse Rate 84 08/12/24 20:58 Respiratory Rate 16 08/12/24 20:58 Blood Pressure 143/86 H 08/12/24 20:58 Pulse Oximetry 95 08/12/24 20:58 Oxygen Delivery Method Room Air 08/12/24 20:58 Temperature 97.8 F 08/12/24 20:58 Pulse Rate 84 08/12/24 20:58 Respiratory Rate 16 08/12/24 20:58 Blood Pressure 143/86 H 08/12/24 20:58 Pulse Oximetry 95 08/12/24 20:58 Oxygen Delivery Method Room Air 08/12/24 20:58 Medical Decision Making [facility] Narrative Medical decision making narrative: This patient has been coughing for the past 10 days and now has developed significant associated anterior lower rib pain when coughing. He arrives with normal vital signs. I did obtain a chest x-ray which shows no sign of pulmonary disease or rib injury. The patient is okay to be discharged home and did receive a prescription for Tylenol 3 and is encouraged use scah-rti-hlnvasd cough suppressant medicines. Imaging Data Chest x-ray: Radiologist's impression: Low lung volumes. No acute or significant findings. Discharge Plan Discharge Clinical Impression: Acute upper respiratory infection Patient Disposition: Home, Self-Care Condition: Stable Additional Instructions: Take medication as needed and directed. Okay to use ibuprofen or Aleve also and sinr-alp-wnnuhsd cough medicines. Follow up with MD for ongoing management or return if worsening. Prescriptions: No Action multivitamin Tablet 1 tab PO QDAY simvastatin 20 mg tablet 20 mg PO .Bedtime Qty: 90 3RF valsartan-hydrochlorothiazide [Diovan HCT] 80-12.5 mg tablet 1 tab PO QDAY Qty: 90 3RF Follow Up/Referrals: Blaise Cohen MD [Primary Care Provider] - Stand Alone Forms: [employer] Info Instructions
--- OUTSIDE RECORDS SUMMARY | 2024-08-12 21:30 | XMS_ITS | Encounter Summary ---
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 Gender Identity Not on file Sexual Orientation Choose not to disclose 2018 8:45 AM CDT documented as of this encounter Plan of Treatment Upcoming Encounters Date Type Department Care Team (Late Contact Info) Description 09/04/2024 9:30 AM CDT Office Visit [facility] Eye [address] 9[facility] Clin [address] [place] [phone] Maria Luz Gomez, OD [address] [place], [place] [address] documented as of this encounter Visit Diagnoses Not on filedocumented in this encounter Care Teams Hospitality Aide Relationship Specialty Start Date End Date No Ref-Primary, Physician PCP - General 06/15/18 Dave Douglas, OD [facility] [address] [place] [address] Referring Physician 06/15/18 Marino Anthony MD [facility] [address] [place] [address] Ophthalmology 06/15/18 Maria Luz Gomez, OD [address] [place] [address] Assigned Surgical Provider 06/25/24 documented as of this encounter
--- OUTSIDE RECORDS SUMMARY | 2024-08-12 21:30 | XMS_ITS | Clinical Summary ---
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 TRIGLYCERIDES 153(H) <150 mg/dL [facility] HDL CHOLESTEROL 44 >40 mg/dL [facility] CHOL/HDL RATIO 5.11(H) <4.51 [facility] LDL CHOLESTEROL 150(H) <131 mg/dL [facility] PATIENT STATUS Fasting [facility] Blood specimen (specimen) BLOOD SPECIMEN / Unknown 07/20/2008 9:31 AM CDT 07/20/2008 9:27 AM CDT us Willam Henao MD CHEMISTRY Final Re sult [facility] [address] [place] [address] from Last 3 Months or Most Recently Relevant to Health Maintenance Insurance [facility] PLUS [employer] MEDICARE ADVANTAGE MR Advance Directives * Full Code (Latest Code Status on File) Date Activated Date Inactivated Comments 02/08/2018 6:01 AM 02/10/2018 3:01 PM Question Answer Comments Code Status Discussion: Not DiscussedPer Advance Care Plan Care Teams Data Systems Manager Relationship Specialty Start Date End Date Blaise Cohen MD [address] [place] [address] PCP - General Family Practice 08/12/17
--- OUTSIDE RECORDS SUMMARY | 2024-08-12 21:30 | XMS_ITS | Clinical Summary ---
Author Organization [facility] Address [address] [place] [address] Care Team Providers Care Funeral Home Attendant Name Role Phone No Ref-Primary, Physician Primary Care Provider Dave Douglas OD Unavailable Marino Anthony MD Unavailable [phone] Maria Luz Gomez OD Unavailable [phone] Allergies Active Allergy Reactions Criticality Noted Date [...] right eye (Primary Dx); Diplopia 06/20/2024 Telephone [facility] Eye [address] 9[facility] [address] [place] [address] Maria Luz Gomez OD 06/19/2024 9:00 AM CDT Lab [facility] [address] [place] [phone] Cranial nerve III palsy, left 06/19/2024 Travel 06/18/2024 Patient Self-Triage [facility] Virtual Urgent Care [address] [phone] Christel Kruger MD 06/17/2024 7:13 AM CDT - 06/17/2024 11:59 PM CDT Hospital Encounter [facility] [address] [phone] Gomez, Maria Luz, OD Cranial nerve III palsy, left Discharge Disposition: Home or Self Care 06/17/2024 Telephone [facility] Eye [address] [phone] Gomez, Maria Luz, OD 06/17/2024 Travel 06/16/2024 7:30 AM CDT Office Visit [facility] Eye [address] [phone] Gomez, Maria Luz, OD Cranial nerve III palsy, left (Primary Dx); Third (oculomotor) nerve palsy, right eye; Diplopia 06/16/2024 Travel 06/14/2024 Travel 06/12/2024 Telephone [facility] Eye [facility] - [address] [phone] Gomez, Maria Luz, OD 06/12/2024 MyC Medical Advice [facility] Eye [facility] - [address] [phone] [facility] 06/12/2024 Telephone [facility] Eye [address] [phone] None Eye Problem (Pt called as he [...] AM CDT 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 Gender Identity Not on file Sexual Orientation [...] Description 09/04/2024 9:30 AM CDT Office Visit [facility] Eye [facility] [address] [place] [address] [address] [place] [phone] Patricia, Maria Luz, OD [address] [place], [place] [phone] Health Maintenance Due Date Last Done Comments [...] Cranial nerve III palsy, left MRA BRAIN ([place]) W/O CONTRAST STAT 06/17/2024 8:07 AM CDT Cranial nerve III palsy, left MR BRAIN W/O & W CONTRAST STAT 06/17/2024 8:07 AM CDT Cranial nerve III palsy, left SENSORIMOTOR Routine 06/16/2024 10:33 AM CDT Cranial nerve III palsy, left EYE EXAM - HIM SCAN 05/31/2024 1 2:00 AM JAVA SOFTWARE ARCHITECT COMPREHENSIVE METABOLIC PANEL STAT 10/03/2021 8:55 PM [...] LAB - BLOOD ORDERABLES Final Result LABORATORY [facility] [address] [facility] Lab (no room number, 1st floor of clinic) [place] [address], [facility] * CRP inflammation (06/19/2024 9:00 AM CDT) CRP Inflammation <3.00 <5.00 mg/L 06/20/19 9:06 PM CDT [facility] Blood BLOOD SPECIMEN / Unknown Venipuncture / Unknown 06/19/2024 9:00 AM CDT 06/19/2024 9:00 AM CDT Maria Luz Jacksoneres OD LAB - BLOOD ORDERABLES Final Result [facility] [address] [place] [address], [facility] * (ABNORMAL) MR Brain w/o & [...] This report will be copied to the [facility] Center to ensure a provider acknowledges the finding. Access Center is available Wednesday through Wednesday 8am- 3:30 pm. Narrative 06/17/2024 8:52 AM CDT EXAM: MR BRAIN W/O and W CONTRAST LOCATION: [facility] DATE: 06/17/2024 INDICATION: left cranial [...] MR BRAIN W/O and W CONTRAST LOCATION: [facility] DATE: 06/17/2024 INDICATION: left cranial [...] This report will be copied to the [facility] to ensure aprovider acknowledges the finding. Access Center is available Wednesdaythrough Wednesday 8am- 3:30 pm. us Maria Luz Gomez OD IMG MRI ORDERABLES Final Resu lt * MRA Brain ([place]) wo Contrast (06/17/2024 8:07 AM CDT) Anatomical Region Laterality Modality Head, SUBRAD MR NEURO, UMP MR NEURO, RAD MR Magnetic Resonance 06/17/2024 8:07 AM CDT Impressions 06/17/2024 10:02 AM CDT IMPRESSION: 1. No intracranial aneurysm. Narrative 06/17/2024 10:02 AM CDT EXAM: MRA BRAIN ([place]) W/O CONTRAST LOCATION: [facility] DATE: 06/17/2024 INDICATION: left cranial nerve 3 palsy rule out aneurysm COMPARISON: None. TECHNIQUE: 3D dddc-ak-nchwig head MRA without intravenous contrast. FINDINGS: ANTERIOR CIRCULATION: No stenosis/occlusion, aneurysm, or high flow vascular malformation. Standard [place] anatomy. POSTERIOR CIRCULATION: No stenosis/occlusion, aneurysm, or high flow vascular malformation. Dominant right and smaller left vertebral artery contribute to a normal basilar artery. Procedure Note Andrzej Garcia MD - 06/17/2024 EXAM: MRA BRAIN ([place]) W/O CONTRAST LOCATION: [facility] DATE: 06/17/2024 INDICATION: left cranial nerve 3 palsy rule out aneurysm COMPARISON: None. TECHNIQUE: 3D vvcr-hg-tbokch head MRA without intravenous contrast. FINDINGS: ANTERIOR CIRCULATION: No stenosis/occlusion, aneurysm, or high flowvascular malformation. Standard [place] anatomy. POSTERIOR CIRCULATION: No stenosis/occlusion, [...] Exam - HIM Scan (05/31/2024 12:00 AM JAVA SOFTWARE ARCHITECT) 05/31/2024 us Provider Outside OTHER Final Result * (ABNORMAL) Comprehensive metabolic panel (10/03/2021 8:55 PM CDT) Sodium 138 133 - 144 mmol/L 10/03/2021 9:20 PM CDT [facility] Potassium 3.7 3.4 - 5.3 mmol/L 10/03/2021 9:20 PM T [facility] Chloride 106 94 - 109 mmol/L 10/03/2021 9:20 PM T [facility] Carbon Dioxide (CO2) 26 20 - 32 mmol/L 10/03/2021 9:20 PM [facility] Anion Gap 6 3 - 14 mmol/L 10/03/2021 9:20 PM [facility] Urea Nitrogen 27 7 - 30 mg/dL 10/03/2021 9:20 PM [facility] Creatinine 1.31(H) 0.66 - 1.25 mg/dL 10/03/2021 9:20 PM [facility] Calcium 9.0 8.5 - 10.1 mg/dL 10/03/2021 9:20 PM [facility] Glucose 150(H) 70 - 99 mg/dL 10/03/2021 9:20 PM [facility] Alkaline Phosphatase 43 40 - 150 U/L 10/03/2021 9:20 PM CDT [facility] AST 26 0 - 45 U/L 10/03/2021 9:20 PM T [facility] ALT 44 0 - 70 U/L 10/03/2021 9:20 PM [facility] Protein Total 8.3 6.8 - 8.8 g/dL 10/03/2021 9:20 PM [facility] Albumin 4.4 3.4 - 5.0 g/dL 10/03/2021 9:20 PM [facility] Bilirubin Total 0.4 0.2 - 1.3 mg/dL 10/03/2021 9:20 PM [facility] GFR Estimate 60(L) >60 mL/min/1.7 3m2 10/03/2021 9:20 PM [facility] Comment:Effective March 062020 eGFRcr in adults is calculated using the 2020 CKD-EPI creatinine equation which includes age and gender (Millie carlisle al., NEJM, DOI: 10.1056/VORJue9197346) Blood STRUCTURE OF LEFT UPPER LIMB / Unknown Venipuncture / Unknown 10/03/2021 8:55 PM CDT 10/03/2021 8:58 PM CDT Hossein Richards MD LAB - BLOOD ORDERABLES Final Res ult [facility] [address] [place] [address], [facility] [phone] from Last 3 Months or Most Recently Relevant to Health Maintenance Insurance [facility] MEDICARE [facility] MEDICARE [employer] MEDICARE Advance Directives For more information, please contact: [phone] * Full Code (Latest Code Status on File) Date Activated Date Inactivated Comments 10/04/2021 2:35 AM 10/04/2021 6:21 PM All basic and advanced life-sustaining interventions are performed as appropriate Question Answer Comments Code status determined by: Discussion with jaycob nt/ legal decision maker Care Teams Funeral Home Attendant Relationship Specialty Start Date End Date No Ref-Primary, Physician PCP - General 06/15/18 Dave Douglas OD [facility] [address] [place] [address] Referring Physician 06/15/18 Marino Anthony MD [facility] [address] [place] [address] Ophthalmology 06/15/18 Maria Luz Gomez, OD [address] [place] [address] Assigned Surgical Provider 06/25/24
--- OUTSIDE RECORDS SUMMARY | 2024-08-12 21:30 | XMS_ITS | Encounter Summary ---
Author Organization [facility] Address [address] [place] [address] Care Team Providers Care Seat Covers Trimmer Name Role Phone No Ref-Primary, Physician Primary Care Provider Dave Douglas OD Unavailable Marino Anthony MD Unavailable [phone] Maria Luz Gomez OD Unavailable [phone] Reason for Visit * Reason Onset Date Comments Eye Problem 06/12/2024 Pt called a s he is experiencing double vision and eye pain Encounter Details Date Type Department Care Team (Late st Contact Info) Description 06/12/2024 Telephone [facility] [address] Clin [address] [place] [phone] None Eye Problem (Pt called as he [...] AM CDT 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 Gender Identity Not on file Sexual Orientation [...] Description 09/04/2024 9:30 AM CDT Office Visit [facility] [address] [facility] [address] Clin [address] [place] [phone] Maria Luz Gomez, OD [address] [place], [place] [phone] documented as of this encounter Visit Diagnoses Not on filedocumented in this encounter Care Teams Seat Covers Trimmer Relationship Specialty Start Date End Date No Ref-Primary, Physician PCP - General 06/15/18 Dave Douglas, OD [facility] [address] [place] [address] Referring Physician 06/15/18 Marino Anthony MD [facility] [address] [place] [address] Ophthalmology 06/15/18 Maria Luz Gomez, OD [address] [place], [place] [address] Assigned Surgical Provider 06/25/24 documented as of this encounter
== END 2024-08-12 21:45 | disposition home or self-care (01) ==
PROVIDERS: Emergency Provider Emergency Medicine Emergency Medical Services; PCP Family Medicine
DX: J06.9 Acute upper respiratory infection, unspecified (principal); R07.81 Pleurodynia; R05.9 Cough, unspecified
CPT/HCPCS: 71046; 99283; 99284